=== PATIENT | male | born 1945 | race Caucasian/White ===

== ENCOUNTER 2016-06-11 11:02 | Emergency (ER) | payer OTHER ==
[~2016-06-11] VITALS: Ht 190.5 cm; Wt 145.0 kg
[~2016-06-11 11:02] MED LIST: ADULT LOW DOSE81 M1 PO; DOXYCYCLINE HY100 M1 PO; ECOTRIN325 MG PO; FENOFIBRATE54 M1; LISINOPRIL20 MG PO; MELOXICAM7.5 MG PO; OMEPRAZOLE20 M3 PO; PLAVIX75 MG PO; PRINIVIL10 MG PO; SIMVASTATIN80 M1 PO; TOPROL XL50 MG PO; TRAMADOL HCL50 MG PO; metronidazole
[2016-06-11 12:05] LABS: EOSINOPHIL (%) 3.5 % (0-5); EOSINOPHIL COUNT 0.3 K/uL (0-0.3); HEMATOCRIT 46.5 % (38.0-50.0); IMMATURE GRANULOCYTE (%) 0.2 % (0.0-0.7); IMMATURE GRANULOCYTE COUNT 0.2 K/uL; LYMPHOCYTE COUNT 1.5 K/uL (1.0-2.8); MCHC 34.4 G/DL (30.0-36.0); MCV 87.1 FL (86-99); MEAN PLAT.VOLUME 10.5 uM^3 (9.0-12.4); MONOCYTE (%) 12.3 % (3-12); MONOCYTE COUNT 1.1 K/uL (0-0.8); NEUTROPHIL (%) 66.6 % (45-76); PLATELET COUNT 171 K/uL (156-360); RBC DIS.WIDTH-CV 13.1 % (11.8-14.6); RBC DIS.WIDTH-SD 40.7 % (39-53); RED BLOOD COUNT 5.34 M/uL (4.00-5.50)
[2016-06-11 12:19] LABS: CHLORIDE 100 mEq/L (99-109); POTASSIUM 4.4 mEq/L (3.7-5.4); SODIUM 138 mEq/L (136-147)
[2016-06-11 12:20] LABS: GLUCOSE 103 mg/dL (70-99)
[2016-06-11 12:22] LABS: ANION GAP 11 MEQ/L (2-14)
[2016-06-11 12:24] LABS: GFR ESTIMATE (CALCULATED) > 59 mL/min/
[2016-06-11 12:25] LABS: UREA NITROGEN (BUN) 17 mg/dL (9-23)
[2016-06-11] MEDS ORDERED: VENTOLIN HFA18 GM IH (13:42)
[2016-06-11] MEDS ORDERED: LEVAQUIN750 MG PO (13:42)
[2016-06-11 14:00] VITALS: BP 131/66
== END 2016-06-11 14:10 | disposition home or self-care (01) ==
LOC: EME → EDBD 11:02 → EDSEX 11:02 → EME 11:02
PROVIDERS: Emergency Medicine
DX: J18.9 Pneumonia, unspecified organism (principal); I10 Essential (primary) hypertension; E78.5 Hyperlipidemia, unspecified; E11.9 Type 2 diabetes mellitus without complications; Z79.02 Long term (current) use of antithrombotics/antiplatelets; Z79.82 Long term (current) use of aspirin; Z95.1 Presence of aortocoronary bypass graft; Z95.5 Presence of coronary angioplasty implant and graft; Z87.891 Personal history of nicotine dependence
CPT/HCPCS: 71020; 80048; 85025; 87040; 87801; 93005; 94640; 99281; 99285; J7030

== ENCOUNTER 2016-11-24 14:27 | Day surgery (SDC) | payer OTHER ==
[~2016-11-24] VITALS: Ht 188 cm; Wt 155.2 kg
[~2016-11-24 14:27] MED LIST changes: +AMOX TR-K CLV1 EAC4 PO; +IRBESARTAN300 MG PO; +LEVAQUIN750 MG PO; +METFORMIN HCL500 MG PO; +METRO CREAM 0.745 GM TP; +OMEPRAZOLE40 M1 PO; +VENTOLIN HFA18 GM IH
[2016-11-24 15:18] LABS: BASOPHIL COUNT 0.1 K/uL (0-0.1); EOSINOPHIL (%) 2.2 % (0-5); EOSINOPHIL COUNT 0.2 K/uL (0-0.3); HEMATOCRIT 45.7 % (38.0-50.0); IMMATURE GRANULOCYTE (%) 1.6 % (0.0-0.7); IMMATURE GRANULOCYTE COUNT 0.2 K/uL; INSTRUMENT ABS NEUTROPHIL CT 7.3 K/uL; LYMPHOCYTE COUNT 2.4 K/uL (1.0-2.8); MCH 30.2 PG (29.0-34.0); MCHC 33.9 G/DL (30.0-36.0); MCV 89.1 FL (86-99); MEAN PLAT.VOLUME 9.9 uM^3 (9.0-12.4); MONOCYTE (%) 6.6 % (3-12); MONOCYTE COUNT 0.7 K/uL (0-0.8); NEUTROPHIL COUNT 7.3 K/uL (1.8-6.4); PLATELET COUNT 238 K/uL (156-360); RBC DIS.WIDTH-CV 12.7 % (11.8-14.6); RBC DIS.WIDTH-SD 41.4 % (39-53); RED BLOOD COUNT 5.13 M/uL (4.00-5.50); WHITE BLOOD COUNT 10.9 K/uL (4.1-10.2)
[2016-11-24 15:20] LABS: POINT-OF-CARE METER ID UU13113696
[2016-11-24 15:25] LABS: INTER. NORMALIZED RATIO 1.1; PROTHROMBIN TIME 10.7 (9.2-11.2); PTT 27.4 (25-32)
[2016-11-24 15:36] LABS: ANION GAP 8 MEQ/L (2-14); CHLORIDE 103 MEQ/L (99-109); GFR ESTIMATE (CALCULATED) > 59 mL/min/; GLUCOSE 110 mg/dL (70-99); POTASSIUM 4.5 MEQ/L (3.7-5.4); SAMPLE HEMOLYSIS CHECK 0; SAMPLE ICTERIC CHECK 0; SAMPLE LIPEMIA CHECK 0; SODIUM 137 MEQ/L (136-147); UREA NITROGEN (BUN) 21 mg/dL (9-23)
[2016-11-24 16:26] LABS: METH RESISTANT S AUREUS PCR NEGATIVE (NEGATIVE)
[2016-11-24 16:47] LABS: PROBE CHECK PASS; SPECIMEN PROCESSING CONTROL PASS
[2016-11-24 17:53] LABS: POINT-OF-CARE METER ID UU13113819
[2016-11-24 19:24] VITALS: BP 148/82
[2016-11-25 00:07] VITALS: BP 138/80
[2016-11-25 08:25] VITALS: BP 145/71
[2016-11-25 11:41] VITALS: BP 149/70
[2016-11-25 16:05] VITALS: BP 133/65
[2016-11-25 19:43] VITALS: BP 176/84
[2016-11-25] MEDS ORDERED: HYDROCODON-ACE1 EAC7 PO (21:09)
[2016-11-25] MEDS ORDERED: COLACE100 MG PO (21:10)
== END 2016-11-25 21:26 | disposition home or self-care (01) ==
LOC: CATH 14:27 → 2SOUTH 17:52 → 4EAST 17:52
PROVIDERS: Thoracic Surgery (Cardiothoracic Vascular Surgery)
PROC: 02HK3JZ Insertion of Pacemaker Lead into Right Ventricle, Percutaneous Approach (ICD-10-PCS; principal; 2016-11-24)
PROC: 0JH604Z Insertion of Pacemaker, Single Chamber into Chest Subcutaneous Tissue and Fascia, Open Approach (ICD-10-PCS; principal; 2016-11-24)
PROC: 3E0102A Introduction of Anti-Infective Envelope into Subcutaneous Tissue, Open Approach (ICD-10-PCS; principal; 2016-11-24)
DX: I48.91 Unspecified atrial fibrillation (principal); I10 Essential (primary) hypertension; I71.4 Abdominal aortic aneurysm, without rupture; E11.9 Type 2 diabetes mellitus without complications; I25.2 Old myocardial infarction; E78.5 Hyperlipidemia, unspecified; I25.10 Atherosclerotic heart disease of native coronary artery without angina pectoris; G47.33 Obstructive sleep apnea (adult) (pediatric); Z95.1 Presence of aortocoronary bypass graft; Z79.02 Long term (current) use of antithrombotics/antiplatelets
CPT/HCPCS: 71010; 71020; 80048; 82948; 85025; 85610; 85730; 87641; 93005; C1786; C1894; C1898; G0378; J0690; J2250; J3010; S0020

== ENCOUNTER 2017-11-26 10:13 | Emergency (ER) | payer OTHER ==
[~2017-11-26] VITALS: Ht 190.5 cm; Wt 149.3 kg
[~2017-11-26 10:13] MED LIST changes: +COLACE100 MG PO; +HYDROCODON-ACE1 EAC7 PO
[2017-11-26 10:46] LABS: HEMATOCRIT 46.3 % (38.0-50.0); HEMOGLOBIN 16.3 G/DL (12.5-16.6); MCH 30.5 PG (29.0-34.0); MCHC 35.2 G/DL (30.0-36.0); MCV 86.7 FL (86-99); PLATELET COUNT 197 K/uL (156-360); RBC DIS.WIDTH-CV 12.5 % (11.8-14.6); RBC DIS.WIDTH-SD 39.3 % (39-53); RED BLOOD COUNT 5.34 M/uL (4.00-5.50); WHITE BLOOD COUNT 9.4 K/uL (4.1-10.2)
[2017-11-26 10:54] LABS: ALBUMIN 4.3 g/dL (3.2-4.8); PTT 29.4 SEC (25-37)
[2017-11-26 10:55] LABS: CHLORIDE 103 mEq/L (99-109); POTASSIUM 4.2 mEq/L (3.7-5.4); SODIUM 136 mEq/L (136-147)
[2017-11-26 10:57] LABS: GLUCOSE 126 mg/dL (70-99); TOTAL PROTEIN 7.3 g/dL (6.4-8.3)
[2017-11-26 10:59] LABS: TOTAL BILIRUBIN 0.8 mg/dL (0.0-1.0)
[2017-11-26 11:00] LABS: ALKALINE PHOSPHATASE 80 IU/L (3-129)
[2017-11-26 11:01] LABS: CREATININE 1.2 mg/dL (0.6-1.3); GFR ESTIMATE (CALCULATED) > 59 mL/min/ (58.99-99999)
[2017-11-26 11:02] LABS: AST (GOT) 25 IU/L (2-34); UREA NITROGEN (BUN) 17 mg/dL (9-23)
[2017-11-26 11:03] LABS: ALT (GPT) 24 IU/L (3-49)
[2017-11-26] MEDS ORDERED: AVALIDE 150/1 TABLET PO (12:27)
[2017-11-26] MEDS ORDERED: PANTOPRAZOLE SO40 MG PO (12:29)
[2017-11-26] MEDS ORDERED: TRAMADOL HCL50 MG PO (12:31)
[2017-11-26 13:45] LABS: APPEARANCE CLEAR ((CLEAR)); BILIRUBIN NEGATIVE; BLOOD NEGATIVE; COLOR YELLOW ((YELLOW)); GLUCOSE (STRIP) NEGATIVE; KETONES NEGATIVE; LEUKOCYTES NEGATIVE; NITRITE NEGATIVE; PROTEIN (STRIP) 30; SPECIFIC GRAVITY 1.042 (1.000-1.030); UCUL ADDED? NO; UROBILINOGEN 0.2 MG/DL (0.2-1.0)
[2017-11-26] MEDS ORDERED: PERCOCET 5/31 TABLET PO (13:58)
[2017-11-26 15:00] VITALS: BP 148/83
== END 2017-11-26 15:00 | disposition home or self-care (01) ==
LOC: EME 10:13
PROVIDERS: Emergency Medicine
DX: R10.31 Right lower quadrant pain (principal); Z86.79 Personal history of other diseases of the circulatory system; I25.10 Atherosclerotic heart disease of native coronary artery without angina pectoris; G89.29 Other chronic pain; M54.9 Dorsalgia, unspecified; Z95.0 Presence of cardiac pacemaker; Z95.1 Presence of aortocoronary bypass graft; E78.5 Hyperlipidemia, unspecified; G47.30 Sleep apnea, unspecified; I25.2 Old myocardial infarction; Z79.84 Long term (current) use of oral hypoglycemic drugs; Z87.891 Personal history of nicotine dependence
CPT/HCPCS: 71275; 74174; 80053; 81003; 83605; 85027; 85610; 85730; 86850; 86900; 86901; 93005; 99281; 99285; J2405; J3010